=== PATIENT | male | born 1955 | race Caucasian/White ===

== ENCOUNTER 2020-10-01 06:18 | Day surgery (SDC) | payer MEDICARE, MEDICAID ==
[~2020-10-01] VITALS: Ht 167.6 cm; Wt 54.4 kg
[~2020-10-01 06:18] MED LIST: ADVAIR DISK1 INH; ALBUTEROL SUL0.083 % IN; ALLERGY RE50 MCG/ACT; AMOXICILLIN500 MG PO; ASPIRIN81 MG PO; MULTI VIT PO; PROAIR HFA IN; ROSUVASTATIN CA40 MG PO; SYMBICORT1 AE1 IN; VITAMIN B-12500 MCG PO; VITAMIN C 500 M1 CHW PO
[2020-10-01] MEDS ORDERED: PERCOCET 5/325M1 TAB PO (09:37)
[2020-10-01 13:06] VITALS: BP 115/75
== END 2020-10-01 11:55 | disposition home or self-care (01) ==
LOC: ORM 06:18
PROVIDERS: ATTEND Surgery
PROC: 0YUA4JZ Supplement Bilateral Inguinal Region with Synthetic Substitute, Percutaneous Endoscopic Approach (ICD-10-PCS; principal; 2020-10-01)
DX: K40.20 Bilateral inguinal hernia, without obstruction or gangrene, not specified as recurrent (principal); F17.210 Nicotine dependence, cigarettes, uncomplicated; Z20.828 Contact with and (suspected) exposure to other viral communicable diseases
CPT/HCPCS: C1781; J0131; J1100

== ENCOUNTER 2020-12-01 16:26 | Observation (INO) | payer MEDICARE, MEDICAID ==
[~2020-12-01] VITALS: Ht 167.6 cm; Wt 54.0 kg
[~2020-12-01 16:26] MED LIST changes: +PERCOCET 5/325M1 TAB PO
--- NOTE | 2020-12-01 17:15 | NUR ---
PT TO ROOM 10 VIA WC ABLE TO STAND AND TRANSFER SELF WITHOUT ASSIST.
[2020-12-01 17:53] LABS: HEMATOCRIT 49.9 % (39.0-50.0); HEMOGLOBIN 16.1 g/dl (14.0-18.0); IMMATURE GRANULOCYTES 0.4 % (0.0-5.0); MEAN CELL VOLUME 88.5 fL CALC (80.0-100.0); MEAN CORPUSCULAR HGB 28.5 pG CALC (26.0-32.0); MEAN CORPUSCULAR HGB CONC 32.3 g/dL CAL (32.0-36.0); NEUT# 13.63 thou/uL (1.82-7.42); RED BLOOD COUNT 5.64 mill/uL (4.70-6.10); RED CELL DISTRI WIDTH 14.6 % (11.5-15.5)
[2020-12-01 18:13] LABS: ALBUMIN 4.9 g/dL (3.2-5.0); ALKALINE PHOSPHATASE 69 u/l (38-126); BUN 20 mg/dL (8-23); BUN/CREATININE RATIO 22 (12-20 (CALC)); CHLORIDE 103 mmol/l (95-108); GFR > 60 ML/MIN (>=60 (CALC)); GFR FOR AFR.AMER. > 60 ML/MIN (>=60 (CALC)); LIPASE 40 u/l (23-300); POTASSIUM 4.7 mmol/l (3.5-5.1); SGOT/AST 28 u/l (19-48); SODIUM 139 mmol/l (137-146); TOTAL PROTEIN 8.5 g/dL (6.3-8.2)
[2020-12-01 18:15] LABS: ANION GAP 18 (6-22 (CALC)); BILIRUBIN, TOTAL 0.9 mg/dL (0.0-1.4); CARBON DIOXIDE 23 mmol/l (22-30)
--- NOTE | 2020-12-01 18:15 | NUR ---
PATIENT RESTING,STATES HE FEELS BETTER.
--- NOTE | 2020-12-01 18:30 | NUR ---
RESTING QUETLY WITH SPOUSE AT BEDSIDE. AWARE OF POSSIBLE DC.
--- NOTE | 2020-12-01 19:39 | NUR ---
D/C instructions given with verbalization of understanding. Pt. discharged home in stable condition.
--- NOTE | 2020-12-01 19:41 | NUR ---
ASSISTED TO BEDSIDE COMMODE FOR DIARRHEA.
--- NOTE | 2020-12-01 19:46 | NUR ---
ASSISTED BACK TO BED. CALL JOHNSON IN REACH
--- NOTE | 2020-12-01 20:01 | NUR ---
PHYSICIAN TO BEDSIDE TO DISCUSS RESULTS AND ADMISSION.
--- NOTE | 2020-12-01 20:42 | NUR ---
patient sleeping. Sister called to check status, HIPPA discussed but sibling aware that patient is stable.
--- NOTE | 2020-12-01 21:06 | NUR ---
ice chips given po per approval of physcian. patient resting,states he feels better.
[2020-12-01 21:09] VITALS: BP 122/69
--- NOTE | 2020-12-01 21:10 | NUR ---
HOURLY ROUNDING CONTINUES. CALLBELL AVAILABLE. BED IN LOW POSITION.
--- NOTE | 2020-12-01 22:08 | NUR ---
PT REPORT RECEIVED FROM SHEELA HOLBROOK
--- NOTE | 2020-12-02 04:07 | NUR ---
PT MEDICATED WITH ZOFRAN FOR C/O NAUSEA. TOLERATED MEDICATION ADMINISTRATION WELL. PT CONT TO REST IN BED. IVF INFUSING TO SITE.
[2020-12-02 06:02] LABS: IMMATURE GRANULOCYTES 0.4 % (0.0-5.0); MEAN CELL VOLUME 89.5 fL CALC (80.0-100.0); MEAN CORPUSCULAR HGB 28.7 pG CALC (26.0-32.0); MEAN CORPUSCULAR HGB CONC 32.1 g/dL CAL (32.0-36.0); NEUT# 10.64 thou/uL (1.82-7.42); RED BLOOD COUNT 4.77 mill/uL (4.70-6.10); RED CELL DISTRI WIDTH 13.3 % (11.5-15.5)
[2020-12-02 06:08] LABS: HEMATOCRIT 42.7 % (39.0-50.0); HEMOGLOBIN 13.7 g/dl (14.0-18.0)
[2020-12-02 06:35] LABS: ALKALINE PHOSPHATASE 48 u/l (38-126); ANION GAP 11 (6-22 (CALC)); BILIRUBIN, TOTAL 0.8 mg/dL (0.0-1.4); BUN 17 mg/dL (8-23); BUN/CREATININE RATIO 19 (12-20 (CALC)); CARBON DIOXIDE 23 mmol/l (22-30); CHLORIDE 105 mmol/l (95-108); CREATININE 0.9 mg/dL (0.7-1.3); GFR > 60 ML/MIN (>=60 (CALC)); GFR FOR AFR.AMER. > 60 ML/MIN (>=60 (CALC)); POTASSIUM 4.2 mmol/l (3.5-5.1); SGOT/AST 22 u/l (19-48); SODIUM 135 mmol/l (137-146)
[2020-12-02 06:44] LABS: ALBUMIN 3.8 g/dL (3.2-5.0); TOTAL PROTEIN 6.7 g/dL (6.3-8.2)
--- NOTE | 2020-12-02 07:12 | NUR ---
REPORT TAKEN FROM MIDNIGHT RN
--- NOTE | 2020-12-02 08:42 | NUR ---
Reassessment of patient completed. No distress noted.
[2020-12-02] MEDS ORDERED: BACTRIM1 TAB PO (10:52)
[2020-12-02] MEDS ORDERED: PROCTO-MED HC2.5 % RE (10:55)
[2020-12-02] MEDS ORDERED: ZOFRAN4 MG/TAB PO (11:08)
--- NOTE | 2020-12-02 11:18 | NUR ---
Discharged to: Home Discharged via: Wheelchair Accompanied by: family D/C Condition: stable Diet: Cardiac Diet modification: Activity: As tolerated Home Health: NONE Follow up appointment: Special instructions: Medications: SEE MEDICATION RECONCILIATION FORM Prescriptions Given: Please notify your physician if you received either one of these vaccinations: Influenza Vaccine - Date: Pneumococcal Vaccine - Date: Patient Education Materials Provided: - Food and Drug Interaction Guide - Anticoagulation Education Booklet Contains the following information: 1. Compliance issues 2. Dietary advice 3. Follow up monitoring 4. Potential for adverse drug reactions and interactions - Smoking Cessation Booklet IF SYMPTOMS WORSEN, OR IF YOU HAVE ADDITIONAL QUESTIONS, PLEASE CONTACT YOUR PERSONAL PHYSICIAN OR SEEK EMERGENCY CARE. CALL YOUR PHYSICIAN IF YOU DO NOT GET RELIEF FROM THE PAIN MEDICATIONS PRESCRIBED, OR IF THE INTENSITY OF PAIN INCREASES, OR IF PAIN IS INTERFERING WITH ACTIVITY OR REST. IF YOU SMOKE, YOU NEED TO QUIT. IT IS GOOD FOR YOU AND EVERYONE AROUND YOU! Your physician and [facility] care about you and your health. The facts are clear. Smoking causes 1 out of 5 deaths in the [place] each year. It is the major preventable cause of emphysema, lung cancer, chronic bronchitis, heart disease and stroke. Quitting is one of the best things you can ever do for yourself and those you love. What better time to quit than now! You've already been cigarette free during your stay. Studies have shown that the first 48 hours of quitting are the toughest. Just a few of the benefits your body begins to experience are blood pressure returns to normal, the carbon monoxide level in your blood drops to normal, your chance of heart attack decreases, and your ability to smell and taste is enhanced. Here are some resources that you may find helpful: [place] [employer] [place] [employer] www.lungusa.org www.cancer.org [place] [employer] [place] [employer] of [employer] (Tobacco Prevention and Control Program) www.americanheart.org www.mic[facility]le.[facility].fl.us Finally don't forget that your doctor may be able to help you. Whichever method you choose will be good for you. IF YOU HAVE A DIAGNOSIS OF CONGESTIVE HEART FAILURE, THERE ARE SEVERAL ADDITIONAL INSTRUCTIONS FOR YOU TO FOLLOW UPON DISCHARGE FROM THE HOSPITAL. Weigh yourself every day and if weight gain is greater than 2 pounds in a day, call your physican. If you experience worsening symptoms such as: Problems with breathing or shortness of breath Ankle/foot/leg swelling Unexplained weight gain greater than 2 pounds Call your physician or come to the emergency room. IF YOU HAVE A DIAGNOSIS OF STROKE, THERE ARE SEVERAL ADDITIONAL INSTRUCTIONS FOR YOU TO FOLLOW: A stroke occurs when something happens to interrupt the steady flow of blood to the brain, like a clot or a burst in a blood vessel. Brain cells quickly begin to . These INCREASE your chance of having a STROKE: * Smoking * High blood pressure * Diabetes * Obesity WARNING SIGNS OR SYMPTOMS: * Sudden weakness on one side of body. * Sudden confusion, trouble speaking or understanding. * Sudden trouble seeing. * Sudden trouble walking or loss of balance. * Sudden severe headache with no known cause. CALL At Any Sign of Stroke. You can beat a stroke. Disabilities can be prevented or limited, but you have must go to the Emergency Department immediately. Go in an Ambulance. Save Time. Be Seen Faster! If you were admitted to the hospital for a stroke After DISCHARGE you must: * Keep ALL follow up appointments. * Take your medications as ordered by your doctor. * Do not take any other drugs without checking with your doctor first. * Do not drive unless your doctor says it is okay. * Call your doctor with any questions or concerns. IF YOU WERE DISCHARGED ON COUMADIN/WARFARIN ANTICOAGULATION THERAPY, THERE ARE SEVERAL ADDITIONAL INSTRUCTIONS FOR YOU TO FOLLOW: Anticoagulants are medications that help prevent blood clots. They are often prescribed for people with certain heart, lung and blood vessel diseases to help prevent heart attacks and strokes. IMPORTANT Anticoagulation medications have been used for many years, but it can be difficult to manage. That's because many factors can affect how they work-including small changes in dose or dose timing, what you eat or drink, other medications and stress. You and your doctor must work closely together to manage this important medication. * Take your medicine EXACTLY as instructed by your doctor. * You must have your blood drawn for PT/INR to monitor your medication. * Do not take any new medications, vitamins or herbal supplements without asking your doctor first. FOODS: * Eat the same amount of foods that contain Vitamin K every day. * Avoid or limit alcohol. * Avoid major changes in diet or notify your doctor first. FOLLOW UP MONITORING: See your physician within one week to monitor your condition. You will need to have blood tests performed to monitor the medication. DRUG INTERACTIONS: * Diet and medications can affect the PT/INR level. * Do not take or discontinue any medication or over the counter medication unless your doctor okays. * Warfarin/Coumadin increases the risk of bleeding. CALL YOUR PHYSICIAN IF: If you notice any signs of increased bleedin. Excessive bruising. 2. Abnormal bleeding from nose or gums. 3. [place], red or dark brown urine. 4. Minor bleeding or bright red blood from the bowel. CALL 911 OR GO TO THE HOSPITAL IF: 1. You have black tarry stools. 2. Sudden dizziness, faintness or weakness. 3. Cold or numbness in arm or leg. 4. Sudden chest pain. 5. Trouble talking or moving one side of body. 6. Coughing or vomiting bright red blood. 7. Severe headache or stomach pain. 8. Serious fall or hit to the head. Visit our website at [email or web address] You are going home today. Depending on your insurance coverage, you may be receiving a bill from the hospital for your hospital stay. If you have any question about your bill, please call the Business Office at [phone] or contact us at our web address: [email or web address]. If applicable, I have received my medication information as recommeded by my provider upon discharge. I have read and understand the above discharge instructions. Pt Signature: Date: Time: Witnessed by: Date: Time: Complete the record of communication to the next provider below. These discharge instructions, including discharge medications, is to be faxed to the next provider at the time of the patient's discharge. ____These instructions faxed to next Provider (Provider Name) on (Date) @ (Time) . ____The second provider involved in patient care following discharge has been faxed this information. These instructions faxed to (Provider-Home Health, Physical Therapy, Agency) on (Date) @ (Time) . OR ____Patient unable/unwilling to verbalize who the next provider of care will be, instructed patient to take these instructions to next appointment with healthcare provider.
--- NOTE | 2020-12-02 11:22 | NUR ---
Reassessment of patient completed. No distress noted.
--- NOTE | 2020-12-02 11:32 | NUR ---
Discharge instructions given. Patient verbalizes understanding of same. Discharged in stable condition via Ambulatory to Home with family. All belongings sent with pt.
[2020-12-02 11:40] VITALS: BP 114/64
--- NOTE | 2020-12-03 08:05 | NUR ---
PER YOVANNY IN MICRO, PRELIM BLOOD CX RESULTS SHOQW GRAM POSITIVE COCCI IN 2 AEROBIC BOTTLES, SEPARATE SETS. RESULTS CALLED TO NIRANJAN. NIRANJAN ASKED THAT I CALL PT TO SEE HOW HE'S DOING AND F/U WITH FINAL TOMORROW. WILL CALL PT THIS AM.
--- NOTE | 2020-12-03 08:26 | NUR ---
CALLED PT LM RE BLOOD CX RESULTS, ASKED TO RETURN CALL. WILL F/U THIS AFTERNOON
--- NOTE | 2020-12-03 12:33 | NUR ---
SPOKE WITH PT REGARDING PRELIM BLOOD CX RESULTS. PT REPORTS NO FEVER, NO CHILLS, NO NAUSEA. SAYS THERE IS STILL BLOOD IN STOOLS AND HE FEELS WEAK BUT ATTRIBUTES THAT TO HIS HEMMORHOIDS. PT REQUESTED WE F/U WITH RESULTS TOMORROW.
--- NOTE | 2020-12-04 12:35 | NUR ---
FINAL BLOOD CX RESULTS SHOW S HAEMOLYTICUS SENSITIVE TO BACTRIM. PT WAS D/C WITH RX FOR BACTRIM BID X10 DAYS. RESULTS REPORTED TO NIRANJAN THIS AM, CALLED PT AND LEFT MESSAGE. WILL TRY AGAIN THIS AFTERNOON
--- NOTE | 2020-12-04 15:28 | NUR ---
PT CALLED BACK, AWARE OF FINAL BLOOD CX RESULTS. REPORTS FEELING MUCH BETTER. NO FURTHER FOLLOW UP WARRANTED
== END 2020-12-02 11:40 | disposition home or self-care (01) ==
LOC: ED 16:26 → ED-I 19:40 → ED 19:58 → ED-I 19:59
PROVIDERS: Student in an Organized Health Care Education/Training Program; ADMIT Internal Medicine; ATTEND Internal Medicine
DX: K52.9 Noninfective gastroenteritis and colitis, unspecified (principal); K50.10 Crohn's disease of large intestine without complications; J44.9 Chronic obstructive pulmonary disease, unspecified; E78.5 Hyperlipidemia, unspecified; Z98.890 Other specified postprocedural states; Z86.16 Personal history of COVID-19; Z20.822 Contact with and (suspected) exposure to COVID-19
CPT/HCPCS: Q9967